=== PATIENT | male | born 1975 | race Caucasian/White ===

== ENCOUNTER 2023-05-04 09:10 | Outpatient (CLI) | payer OTHER | END 2023-05-04 09:15 | disposition home or self-care (01) | LOC: SONOGRAMA 09:10 | PROVIDERS: ATTEND Specialist | DX: D17.1 Benign lipomatous neoplasm of skin and subcutaneous tissue of trunk (principal) ==

== ENCOUNTER 2023-06-14 06:51 | Day surgery (SDC) | payer OTHER ==
[2023-06-07 08:31] LABS: URINE APPEARANCE Clear; URINE BILIRRUBIN Negative (NEGATIVE); URINE BLOOD Negative; URINE COLOR Yellow; URINE GLUCOSE Negative (NEGATIVE); URINE LEUKOCYTE Negative; URINE NITRATE Negative; URINE PROTEIN Negative (NEGATIVE); URINE UROBILINOGEN 0.2 E.U./dl
[2023-06-07 08:33] LABS: HEMATOCRIT 45.8 % (39.0-48.0); HEMOGLOBIN 15.1 g/dL (13-16.00); MEAN CELL VOLUME 78.6 fL (80.0-100.00); MEAN CORPUSCULAR HEMOGLOBIN 25.8 pg (27.00-32.0); MEAN CORPUSCULAR HGB CONC 32.8 g/dl (32.0-36.0); PLATELET COUNT 189 K/uL (150-450); RED BLOOD COUNT 5.83 M/uL (4.00-6.00); RED CELL DISTRIBUTION WIDTH 13.6 % (11.5-14.5)
[2023-06-07 08:46] LABS: URINE BACTERIA 3.7 uL (0.0-1933); URINE EPITHELIAL CELLS 0.1 uL (0.0-38.8); URINE RBC 0.5 uL (0.0-20.8); URINE WBC 1.3 uL (0.0-23.2)
[2023-06-07 09:08] LABS: INR 0.98; PARTIAL THROMBOPLASTIN TIME 28.5 SECONDS (22.0-34.0); PROTHROMBIN TIME 10.3 SECONDS (9.0-11.5)
[2023-06-07 09:14] LABS: ALBUMIN 4.5 gm/dL (3.4-5.0); BILIRUBIN TOTAL 0.38 mg/dL (0.3-1.2); CALCIUM 9.8 mg/dL (8.5-10.1); CREATININE SERUM 1.29 mg/dL (0.70-1.30); GFR 59.2; GLOBULINA 3.5 G/DL (2.4-3.5); POTASSIUM 3.97 mEq/L (3.5-5.1)
== END 2023-06-14 15:30 | disposition home or self-care (01) ==
LOC: CIR.AMB 06:51
PROVIDERS: ATTEND Specialist
DX: D17.1 Benign lipomatous neoplasm of skin and subcutaneous tissue of trunk (principal); L72.0 Epidermal cyst; Z20.822 Contact with and (suspected) exposure to COVID-19